=== PATIENT | male | born 1980 | race Caucasian/White ===

== ENCOUNTER → 2016-10-21 | Outpatient (CLI) | payer SELFPAY | LOC: COL.RAD 11:22 | DX: M79.642 Pain in left hand (principal); R22.32 Localized swelling, mass and lump, left upper limb; S62.391A Other fracture of second metacarpal bone, left hand, initial encounter for closed fracture ==

== ENCOUNTER 2018-10-03 09:53 | Outpatient (RCR) | payer OTHER | END 2019-01-01 | LOC: WSPT | DX: Z02.71 Encounter for disability determination (principal); F41.8 Other specified anxiety disorders ==

== ENCOUNTER 2021-06-04 15:44 | Emergency (ER) | payer SELFPAY ==
[~2021-06-04] VITALS: Ht 170.2 cm; Wt 72.7 kg
[2021-06-04 15:47] VITALS: TEMP 98.4
[2021-06-04 17:12] LABS: BASO % 0.2 % (0.0-2.0); EOS % 0.2 % (0.0-4.0); GRAN # 4.7 K/mm3 (1.4-6.5); GRAN % 72.2 % (42.2-75.2); HEMATOCRIT 45.5 % (42.0-52.0); HEMOGLOBIN 16.7 g/dl (13.5-18.0); LYMPH # 1.3 K/mm3 (1.2-3.4); LYMPH % 20.2 % (20.0-51.0); MEAN CELL VOLUME 87 fl (80.0-100.0); MEAN CORPUSCULAR HEMOGLOBIN 32 pg (27-31); MEAN CORPUSCULAR HGB CONC 37 g/dl (33.0-37.0); MEAN PLATELET VOLUME 11.1 fl (7.4-10.4); MONO # 0.4 K/mm3 (0.1-0.6); MONO % 6.7 % (1.7-9.3); PLATELET COUNT 107 K/mm3 (130-400); RED BLOOD COUNT 5.23 M/mm3 (4.20-5.60); REDCELL DISTRIBUTION WIDTH-CV 11.6 % (11.5-14.5)
[2021-06-04 17:30] LABS: ALBUMIN 3.6 gm/dL (3.5-5.0); BILIRUBIN,TOTAL 1.6 mg/dL (0.2-1.2); CALCIUM 9.2 mg/dL (8.4-10.2); CREATININE, serum 1.31 mg/dL (0.72-1.25); POTASSIUM 4.6 mmol/L (3.5-4.5); TOTAL PROTEIN 8.4 gm/dL (6.2-8.1)
[2021-06-04] MEDS ORDERED: INDERAL 20MG20 MG (17:39)
[2021-06-04] MEDS ORDERED: GLUCOPHAGE850 MG/TAB PO (18:45)
[2021-06-04 19:24] VITALS: BP 109/71; PULSE 103
== END 2021-06-04 19:24 | disposition home or self-care (01) ==
LOC: COL.ER 15:44
PROVIDERS: Family Medicine
DX: U07.1 COVID-19 (principal); E11.65 Type 2 diabetes mellitus with hyperglycemia
CPT/HCPCS: J1815; J2060; J7030; J7120

== ENCOUNTER 2021-06-06 08:36 | Inpatient (IN) | payer SELFPAY ==
[~2021-06-06] VITALS: Ht 170.2 cm; Wt 71.7 kg
[~2021-06-06 08:36] MED LIST: GLUCOPHAGE850 MG/TAB PO; INDERAL 20MG20 MG
[2021-06-06 08:59] LABS: BASO % 0.5 % (0.0-2.0); EOS % 0.2 % (0.0-4.0); GRAN # 3.2 K/mm3 (1.4-6.5); GRAN % 78.3 % (42.2-75.2); HEMATOCRIT 45.3 % (42.0-52.0); HEMOGLOBIN 16.3 g/dl (13.5-18.0); LYMPH # 0.6 K/mm3 (1.2-3.4); LYMPH % 13.9 % (20.0-51.0); MEAN CELL VOLUME 88 fl (80.0-100.0); MEAN CORPUSCULAR HEMOGLOBIN 32 pg (27-31); MEAN CORPUSCULAR HGB CONC 36 g/dl (33.0-37.0); MEAN PLATELET VOLUME 10.7 fl (7.4-10.4); MONO # 0.3 K/mm3 (0.1-0.6); MONO % 6.4 % (1.7-9.3); PLATELET COUNT 112 K/mm3 (130-400); RED BLOOD COUNT 5.13 M/mm3 (4.20-5.60); REDCELL DISTRIBUTION WIDTH-CV 11.8 % (11.5-14.5)
[2021-06-06 09:08] LABS: ALBUMIN 3.3 gm/dL (3.5-5.0); BILIRUBIN,TOTAL 1.3 mg/dL (0.2-1.2); CALCIUM 9.1 mg/dL (8.4-10.2); CREATININE, serum 1.36 mg/dL (0.72-1.25); POTASSIUM 3.9 mmol/L (3.5-4.5); TOTAL PROTEIN 7.9 gm/dL (6.2-8.1)
--- NOTE | 2021-06-06 13:09 | NUR ---
PT STATES HE IS NOT INITIALLY FROM HERE, AND HE WAS ONLY HERE TO TAKE CARE OF HIS MOTHER WHO RECENTLY FROM [facility]. HE PLANS ON DISCHARGING, TAKING CARE OF HIS MOTHER'S THINGS AND THEN MOVING AWAY FROM [place]. HIS STEP-FATHER IS HIS ONLY SUPPORT IN [facility], HOWEVER DOES HAVE A BROTHER WHO LIVES IN [place]. HE IS NON-COMPLIANT WITH HIS MEDICATION FOR DMT2 BECAUSE HE DOES NOT LIKE NEEDLES, SO TESTING HIS WBG AND GIVING HIMSELF INSULIN IS NOT SOMETHING HE LIKES TO DO. HE HAS BEEN PRESCRIBED METFORMIN BUT DOES NOT TAKE IT BECAUSE HE DOES NOT LIKE HOW IT MAKES HIM FEEL. THE PATIENT IS CURRENTLY ON 6L O2 AND IS NOT LABOROUS IN HIS BREATHING. HE DENIES ANY PAIN AT THIS TIME. LUNG SOUNDS ARE CLEAR BUT DIMINISHED. NO OTHER CONCERNS AT THIS TIME.
[2021-06-06] MEDS ORDERED: CELEXA40 MG PO (13:15)
[2021-06-06 15:57] VITALS: BP 106/72; PULSE 92; TEMP 98.6
[2021-06-06 16:00] VITALS: BP 108/72; PULSE 92; TEMP 98.2
[2021-06-06 17:30] LABS: MUCOUS Present (NOT PRESENT); PH 5 (5-8); SQUAMOUS EPITHELIAL None Seen /hpf (0-10); URINE APPEARANCE Clear (CLEAR/HAZY); URINE BACTERIA None Seen /hpf (NONE SEEN); URINE BILIRUBIN Negative (NEGATIVE); URINE BLOOD Negative (NEGATIVE); URINE COLOR Yellow (YELLOW); URINE GLUCOSE 3+ (NEGATIVE); URINE KETONE 2+ (NEGATIVE); URINE LEUKOCYTE ESTERASE Negative (NEGATIVE); URINE NITRATE Negative (NEGATIVE); URINE PROTEIN(semi-quant) Negative (NEGATIVE); URINE RBC None Seen /hpf (0-2); URINE UROBILINOGEN Negative (NEGATIVE); URINE WBC 0-2 /hpf (0-2)
[2021-06-06 17:35] LABS: COLLECTION METHOD CLEAN CATCH
--- NOTE | 2021-06-06 18:23 | NUR ---
PT HAD UNEVENTFUL AFTERNOON. THE PATIENT DENIES ANY PAIN. IS FEARFUL OF NEEDLES, HOWEVER TOOK INSULIN WITHOUT A PROBLEM AND TOLERATED WELL. THE PATIENT HAS REMAINED ON 6L O2.
[2021-06-06 20:07] VITALS: BP 122/75; PULSE 94; TEMP 98.2
[2021-06-06 23:45] VITALS: BP 115/74; PULSE 87; TEMP 97.8
[2021-06-07] VITALS (7 sets, daily range): BP systolic 108–117; BP diastolic 69–79; PULSE 68–93; TEMP 97.4–98.6
[2021-06-07 06:24] LABS: MEAN CELL VOLUME 88 fl (80.0-100.0); MEAN CORPUSCULAR HGB CONC 36 g/dl (33.0-37.0); MEAN PLATELET VOLUME 10.7 fl (7.4-10.4); PLATELET COUNT 129 K/mm3 (130-400); RED BLOOD COUNT 4.14 M/mm3 (4.20-5.60); REDCELL DISTRIBUTION WIDTH-CV 11.7 % (11.5-14.5)
[2021-06-07 06:36] LABS: CALCIUM 8.4 mg/dL (8.4-10.2); CREATININE, serum 0.87 mg/dL (0.72-1.25); POTASSIUM 3.7 mmol/L (3.5-4.5)
[2021-06-07 07:10] LABS: HEMATOCRIT 36.5 % (42.0-52.0); MEAN CORPUSCULAR HEMOGLOBIN 31 pg (27-31)
[2021-06-07 07:32] LABS: BAND 1 % (0-10); LYMPHOCYTE 18 % (20.0-51.0)
[2021-06-07 07:33] LABS: NEUTROPHILS 70 % (42.0-75.2); PLATELET ESTIMATE DECREASED (NORMAL)
--- NOTE | 2021-06-07 09:16 | NUR ---
PT ASSESSED, NO COMPLAINTS OF PAIN OR DYSPNEA. NO SIGNS OR SYMPTOMS OF DISTRESS. DOES APPEAR TO HYPERVENTLATE WHEN ADMINSTERING INJECTIONS. NO OTHER CONCERNS AT THIS TIME. CALL LIGHT WITHIN REACH
--- NOTE | 2021-06-07 14:40 | NUR ---
Due to patient being covid +, phone call made to the patient's room. Patient reports that he is fully independent with his activities of daily living. She reports that he does not utilize any DME to assist with mobility. Patient reports to no oxygen needs at home, however he is currently on 5L in room. Patient reports that he does not currently have a PCP and does not plan on getting one because "i'm moving soon". Utilizes [facility] for medications. Patient does not have a DP- etablished and does not wish to create one at this time. Both of his parents are not living he has never been and has no children. He does have one brother named Giorgio ([phone]) who is 20 and would be his NOK. Discharge plan: Home, may need oxygen set up
[2021-06-08 03:38] VITALS: BP 118/74; BP 118/774; PULSE 74; TEMP 97.9
[2021-06-08 07:20] LABS: MEAN CELL VOLUME 88 fl (80.0-100.0); MEAN CORPUSCULAR HEMOGLOBIN 31 pg (27-31); MEAN CORPUSCULAR HGB CONC 36 g/dl (33.0-37.0); MEAN PLATELET VOLUME 10.7 fl (7.4-10.4); PLATELET COUNT 139 K/mm3 (130-400); RED BLOOD COUNT 4.14 M/mm3 (4.20-5.60); REDCELL DISTRIBUTION WIDTH-CV 11.8 % (11.5-14.5)
[2021-06-08 07:21] LABS: HEMATOCRIT 36.5 % (42.0-52.0)
[2021-06-08 07:25] LABS: C-REACTIVE PROTEIN 4.03 mg/dL (0.00-0.50); CALCIUM 8.4 mg/dL (8.4-10.2); CREATININE, serum 0.76 mg/dL (0.72-1.25); POTASSIUM 3.2 mmol/L (3.5-4.5)
[2021-06-08 07:40] LABS: ALBUMIN 2.6 gm/dL (3.5-5.0); BILIRUBIN,DIRECT 0.3 mg/dL (0.0-0.5); BILIRUBIN,TOTAL 0.5 mg/dL (0.2-1.2)
--- NOTE | 2021-06-08 08:00 | NUR ---
Patient laying in bed in the dark. A&Ox4. VSS, airvo, no reported SOB. IV CDI, fluids infusing. Denies pain and discomfort. Nurse encouraging the patient to move while in bed, the patient states that he gets SOB and nauseous when he moves. Droplet/contact precautions in place. No further needs expressed. Call light within reach
[2021-06-08 08:06] LABS: BAND 11 % (0-10); BASOPHIL 1 % (0-2); LYMPHOCYTE 6 % (20.0-51.0); NEUTROPHILS 75 % (42.0-75.2); NUCLEATED RED BLOOD CELL 1 (0-6)
[2021-06-08 08:07] LABS: PLATELET ESTIMATE NORMAL (NORMAL)
[2021-06-08 08:09] VITALS: BP 109/62; PULSE 76; TEMP 98.1
[2021-06-08 11:38] VITALS: BP 97/63; PULSE 73; TEMP 97.9
[2021-06-08 16:36] VITALS: BP 108/65; PULSE 71; TEMP 98.3
--- NOTE | 2021-06-08 18:07 | NUR ---
Patient sitting up in bed eating dinner, A&Ox3. VSS 5L HF, no reported SOB. IV CDI. Patient did not want to work with PT and sit on the edge of the bed. Nursing staff encouraging patient to move in the bed and to ambulate. Patient verbalized an understanding, but still staying in bed. Denies pain and discomfort. No further needs expressed. Call light within reach
[2021-06-08 19:39] VITALS: BP 111/65; PULSE 79; TEMP 98.7
--- NOTE | 2021-06-08 20:49 | NUR ---
Patient assesseda round 1950. Alert and oriented x 4, and able to make needs known. Denies pain and discomfort. Peripheral INT to left AC. Reports SOB and dyspnea with exertion. On oxygen at 5 L/min via NC. LS CTA in upper lobes, diminished in lower. HRR. Telemetry in place. Voices no questions, needs, or concerns at this time. In bed with call light within reach.
[2021-06-08 23:35] VITALS: BP 110/59; PULSE 85; TEMP 98.3
[2021-06-09 04:04] VITALS: BP 113/70; PULSE 75; TEMP 97.3
[2021-06-09 04:43] LABS: ARTERIAL BLD GAS O2 SATURATION 91.8 % (92-100); ARTERIAL BLOOD GAS BASE EXCESS -2.2 (-2-2); ARTERIAL BLOOD GAS HCO3 19.2 meq/L (22-26); ARTERIAL BLOOD GAS PCO2 25.2 mmHg (35-45)
--- NOTE | 2021-06-09 05:28 | NUR ---
Patient's SPO2 around 0400 was 82% on oxygen at 5 L/min via NC. Patient compaining of shortness of breath at that time. Increased oxygen at 15 L/min via NC. SPO2 89-91%. Updated RT, and called [facility] and updated. New orders received and udpated RT with new orders. Patient given PRN Ativan, as patient anxious with high respiratory rate at that time. ABG drawn by RT. Patient very anxious/afraid of needles. Needed lots of encouragement and reminders to take slow deep breaths. SPO2 currently at 94% on oxygen at 15 L/min. Voices no further questions, needs, or concerns at this time. In bed with call light within reach.
[2021-06-09 06:21] LABS: BASO % 0.1 % (0.0-2.0); GRAN # 5.2 K/mm3 (1.4-6.5); GRAN % 74.4 % (42.2-75.2); HEMATOCRIT 37.2 % (42.0-52.0); HEMOGLOBIN 13.3 g/dl (13.5-18.0); LYMPH # 1.3 K/mm3 (1.2-3.4); LYMPH % 19.3 % (20.0-51.0); MEAN CELL VOLUME 89 fl (80.0-100.0); MEAN CORPUSCULAR HEMOGLOBIN 32 pg (27-31); MEAN CORPUSCULAR HGB CONC 36 g/dl (33.0-37.0); MEAN PLATELET VOLUME 10.7 fl (7.4-10.4); MONO # 0.4 K/mm3 (0.1-0.6); MONO % 5.8 % (1.7-9.3); PLATELET COUNT 150 K/mm3 (130-400); RED BLOOD COUNT 4.19 M/mm3 (4.20-5.60); REDCELL DISTRIBUTION WIDTH-CV 11.9 % (11.5-14.5)
[2021-06-09 06:31] LABS: CALCIUM 8.1 mg/dL (8.4-10.2); CREATININE, serum 0.74 mg/dL (0.72-1.25); POTASSIUM 3.1 mmol/L (3.5-4.5)
[2021-06-09 08:09] VITALS: BP 106/61; PULSE 76; TEMP 97.9
--- NOTE | 2021-06-09 08:54 | NUR ---
Patient laying in bed upon entering the room. This RN opened the blinds to allow sunlight. Patient has a very flat affect, and appears depressed. Current circumstances at home were explained to this RN. This RN is encouraging the patient to work with PT/OT and to get up out of bed, possibly to the recliner. Patient did not talk to this RN much overall. Did wince w/ IV medications administration, IV works fine w/ no signs of infiltrations. Patient has a fear of needles.
[2021-06-09 11:44] VITALS: BP 93/58; PULSE 73; TEMP 97.7
[2021-06-09 15:11] VITALS: BP 97/52; PULSE 74; TEMP 98.5
--- NOTE | 2021-06-09 17:06 | NUR ---
Patient has done well today. Currently sitting in the recliner waiting for his dinner to arrive.
[2021-06-09 19:51] VITALS: BP 109/69; PULSE 72; TEMP 98.1
[2021-06-09 23:40] VITALS: BP 101/64; PULSE 69; TEMP 98.2
[2021-06-10 03:58] VITALS: BP 100/66; PULSE 69; TEMP 97.7
[2021-06-10 07:47] VITALS: BP 98/59; PULSE 61; TEMP 97.9
[2021-06-10 08:06] LABS: CALCIUM 8.2 mg/dL (8.4-10.2); CREATININE, serum 0.69 mg/dL (0.72-1.25)
[2021-06-10 08:12] LABS: POTASSIUM 2.9 mmol/L (3.5-4.5)
--- NOTE | 2021-06-10 08:51 | NUR ---
This RN entered the room to administer morning medications; Patient stated, "No shots". This RN asked the patient if he was sure and informed the patient of the risks, and patietn still refused IV medications, insulin, and heparin for VTE.
--- NOTE | 2021-06-10 11:05 | NUR ---
BINTA consulted Financial Counseling for the patient yesterday, 05/30. SW contacted the patient this morning to follow up. The patient states that he is doing alright. He still plans on returning home upon discharge. He remains on 6 liters of oxygen. SW to continue to monitor. *Discharge plan: home*
[2021-06-10 11:23] VITALS: BP 96/60; PULSE 71; TEMP 98.4
[2021-06-10 16:20] VITALS: BP 102/64; PULSE 63; TEMP 98.3
--- NOTE | 2021-06-10 18:30 | NUR ---
Patient remains depressed, concerns brought up to Dr. Nettles. Patient feels he will be in the hospital forever, and that he is not going to recover. This RN explained that he is only on 3L of O2 and appears to be doing well. Encouraged to continue his treatments and not refuse IV medications.
[2021-06-10 19:54] VITALS: BP 106/54; PULSE 84
--- NOTE | 2021-06-10 19:57 | NUR ---
Patient with 84% on O2 @3L per NC, increased O2 to 10L per Hi Lucho - call placed to RT, 91% on O2@10L per HIFLO Cannula, patient tolerating at this time.
[2021-06-11 00:33] VITALS: BP 99/66; PULSE 62; TEMP 97.4
[2021-06-11 05:20] VITALS: BP 100/64; PULSE 54; TEMP 97.5
--- NOTE | 2021-06-11 05:32 | NUR ---
Patient resting quietly, no c/o at this time, call catia w/i reach, no s/s of hypo/hyper glycemia, telemetry in use running SR 60s, VS stable, currently on 6L per hiflo NC, SHOB noted on exertion, cough noted. Will continue to monitor.
[2021-06-11 06:54] LABS: BASO % 0.2 % (0.0-2.0); EOS % 0.4 % (0.0-4.0); GRAN # 4.2 K/mm3 (1.4-6.5); HEMOGLOBIN 12.8 g/dl (13.5-18.0); LYMPH % 17.9 % (20.0-51.0); MEAN CELL VOLUME 89 fl (80.0-100.0); MEAN CORPUSCULAR HEMOGLOBIN 31 pg (27-31); MEAN CORPUSCULAR HGB CONC 35 g/dl (33.0-37.0); MEAN PLATELET VOLUME 10.1 fl (7.4-10.4); MONO # 0.4 K/mm3 (0.1-0.6); MONO % 7.4 % (1.7-9.3); PLATELET COUNT 166 K/mm3 (130-400); RED BLOOD COUNT 4.11 M/mm3 (4.20-5.60); REDCELL DISTRIBUTION WIDTH-CV 11.8 % (11.5-14.5)
[2021-06-11 07:00] LABS: HEMATOCRIT 36.6 % (42.0-52.0)
[2021-06-11 07:35] LABS: CALCIUM 8.3 mg/dL (8.4-10.2); CREATININE, serum 0.71 mg/dL (0.72-1.25); POTASSIUM 3.5 mmol/L (3.5-4.5)
[2021-06-11 08:46] VITALS: BP 100/67; PULSE 55; TEMP 98.4
--- NOTE | 2021-06-11 09:46 | NUR ---
PT ASSESSED. NO COMPLAINTS OF PAIN OR DYSPNEA. NO SIGNS OR SYMPTOMS OF DSITRESS. CALL LIGHT WITHIN REACH.
[2021-06-11 11:21] VITALS: BP 103/62; PULSE 65; TEMP 99.2
[2021-06-11 17:18] VITALS: BP 104/70; PULSE 55; TEMP 98.1
[2021-06-11 21:13] VITALS: BP 102/58; PULSE 57; TEMP 98.1
[2021-06-12 01:23] VITALS: BP 99/69; PULSE 54; TEMP 97.7
[2021-06-12 05:22] VITALS: BP 99/62; PULSE 87; TEMP 98.3
[2021-06-12 06:15] LABS: BASO % 0.2 % (0.0-2.0); EOS # 0.1 K/mm3 (0.0-0.7); EOS % 0.8 % (0.0-4.0); GRAN # 4.8 K/mm3 (1.4-6.5); HEMATOCRIT 38.3 % (42.0-52.0); HEMOGLOBIN 13.4 g/dl (13.5-18.0); LYMPH # 1.1 K/mm3 (1.2-3.4); LYMPH % 17.2 % (20.0-51.0); MEAN CELL VOLUME 91 fl (80.0-100.0); MEAN CORPUSCULAR HEMOGLOBIN 32 pg (27-31); MEAN CORPUSCULAR HGB CONC 35 g/dl (33.0-37.0); MEAN PLATELET VOLUME 10.5 fl (7.4-10.4); MONO # 0.5 K/mm3 (0.1-0.6); MONO % 7.4 % (1.7-9.3); PLATELET COUNT 181 K/mm3 (130-400); RED BLOOD COUNT 4.23 M/mm3 (4.20-5.60)
[2021-06-12 06:33] LABS: CALCIUM 8.5 mg/dL (8.4-10.2); CREATININE, serum 0.81 mg/dL (0.72-1.25); POTASSIUM 3.5 mmol/L (3.5-4.5)
[2021-06-12 08:43] VITALS: BP 117/61; PULSE 72; TEMP 98.2
[2021-06-12] MEDS ORDERED: DECADRON6 MG PO (10:04)
--- NOTE | 2021-06-12 11:09 | NUR ---
PT DOES NOT REQUIRE OXYGEN WITH AMBULATION. SP02 >92% WITH MOVEMENT.
[2021-06-12 11:24] VITALS: BP 104/55; PULSE 59; TEMP 97.9
--- NOTE | 2021-06-12 14:57 | NUR ---
PT DISCHARGE TEACHING COMPLETE. IV REMOVED. NO QUESTIONS OR CONCERNS. PT ESCORTED OUT TO CAR.
== END 2021-06-12 14:57 | disposition home or self-care (01) | DRG 177 ==
LOC: COL.ER 08:36 → MEDICAL 09:23
PROVIDERS: Family Medicine; Internal Medicine; Physician Assistant; Student in an Organized Health Care Education/Training Program; ADMIT Student in an Organized Health Care Education/Training Program
PROC: XW033E5 Introduction of Remdesivir Anti-infective into Peripheral Vein, Percutaneous Approach, New Technology Group 5 (ICD-10-PCS; principal; 2021-06-07)
PROC: 5A0945A Assistance with Respiratory Ventilation, 24-96 Consecutive Hours, High Flow/Velocity Cannula (ICD-10-PCS; 2021-06-08)
DX: U07.1 COVID-19 (principal); J96.01 Acute respiratory failure with hypoxia; N17.9 Acute kidney failure, unspecified; E86.0 Dehydration; E11.9 Type 2 diabetes mellitus without complications; F41.9 Anxiety disorder, unspecified; F32.A Depression, unspecified; R94.5 Abnormal results of liver function studies; Z79.4 Long term (current) use of insulin
CPT/HCPCS: 99222-AI; 99232-AI; 99233-AI; 99239; J0248; J0696; J1100; J1644; J1815; J2405; J7030; J7050; J8540; Q9967

== ENCOUNTER 2022-01-18 15:28 | Emergency (ER) | payer SELFPAY ==
[~2022-01-18] VITALS: Ht 165.1 cm; Wt 70.9 kg
[~2022-01-18 15:28] MED LIST changes: +CELEXA40 MG PO; +DECADRON6 MG PO
[2022-01-18 16:07] VITALS: TEMP 98.1
[2022-01-18 18:49] LABS: BASO # 0.1 K/mm3 (0.0-0.2); BASO % 0.6 % (0.0-2.0); EOS # 0.2 K/mm3 (0.0-0.7); EOS % 2.3 % (0.0-4.0); GRAN # 5.5 K/mm3 (1.4-6.5); GRAN % 64.2 % (42.2-75.2); HEMATOCRIT 47.7 % (42.0-52.0); HEMOGLOBIN 17.9 g/dl (13.5-18.0); LYMPH # 2.2 K/mm3 (1.2-3.4); LYMPH % 25.5 % (20.0-51.0); MEAN CELL VOLUME 86 fl (80.0-100.0); MEAN CORPUSCULAR HEMOGLOBIN 32 pg (27-31); MEAN CORPUSCULAR HGB CONC 38 g/dl (33.0-37.0); MEAN PLATELET VOLUME 10.2 fl (7.4-10.4); MONO # 0.6 K/mm3 (0.1-0.6); MONO % 6.8 % (1.7-9.3); PLATELET COUNT 180 K/mm3 (130-400); RED BLOOD COUNT 5.54 M/mm3 (4.20-5.60)
[2022-01-18 19:00] LABS: COLLECTION METHOD CLEAN CATCH
[2022-01-18 19:11] LABS: BILIRUBIN,TOTAL 1.1 mg/dL (0.2-1.2); CALCIUM 9.8 mg/dL (8.4-10.2); CREATININE, serum 1.49 mg/dL (0.72-1.25); POTASSIUM 3.6 mmol/L (3.5-4.5); TOTAL PROTEIN 7.5 gm/dL (6.2-8.1)
[2022-01-18 19:29] LABS: SQUAMOUS EPITHELIAL None Seen /hpf (0-10); URINE BACTERIA None Seen /hpf (NONE SEEN); URINE RBC 0-2 /hpf (0-2)
[2022-01-18 19:30] LABS: URINE APPEARANCE Clear (CLEAR/HAZY); URINE BLOOD Negative (NEGATIVE); URINE COLOR Colorless (YELLOW); URINE GLUCOSE 2+ (NEGATIVE); URINE KETONE Negative (NEGATIVE); URINE NITRATE Negative (NEGATIVE); URINE PROTEIN(semi-quant) Negative (NEGATIVE); URINE UROBILINOGEN 0.2 E.U/dL (0.2-1.0)
[2022-01-18 20:05] VITALS: BP 119/85; PULSE 113
== END 2022-01-18 20:05 | disposition left against medical advice (07) ==
LOC: COL.ER 15:28
PROVIDERS: Nurse Practitioner Primary Care
DX: E11.65 Type 2 diabetes mellitus with hyperglycemia (principal); N17.9 Acute kidney failure, unspecified; Z28.310 Unvaccinated for COVID-19
CPT/HCPCS: J1885; J2405; J7030; Q9967

== ENCOUNTER 2022-02-05 12:16 | Inpatient (IN) | payer SELFPAY ==
[2022-02-05] VITALS (353 sets, daily range): BP systolic 117–118; BP diastolic 80–85; PULSE 85–95; TEMP 98.8; O2SAT 93–100
[~2022-02-05] VITALS: Ht 167.6 cm; Wt 159.7 kg
[2022-02-05 14:23] LABS: BASO # 0.1 K/mm3 (0.0-0.2); BASO % 0.5 % (0.0-2.0); EOS # 0.3 K/mm3 (0.0-0.7); EOS % 3.5 % (0.0-4.0); GRAN # 6.1 K/mm3 (1.4-6.5); GRAN % 65.7 % (42.2-75.2); HEMATOCRIT 45.8 % (42.0-52.0); HEMOGLOBIN 16.8 g/dl (13.5-18.0); LYMPH # 2.2 K/mm3 (1.2-3.4); LYMPH % 23.7 % (20.0-51.0); MEAN CELL VOLUME 89 fl (80.0-100.0); MEAN CORPUSCULAR HEMOGLOBIN 33 pg (27-31); MEAN CORPUSCULAR HGB CONC 37 g/dl (33.0-37.0); MEAN PLATELET VOLUME 10.4 fl (7.4-10.4); MONO # 0.6 K/mm3 (0.1-0.6); MONO % 6.3 % (1.7-9.3); PLATELET COUNT 179 K/mm3 (130-400); RED BLOOD COUNT 5.17 M/mm3 (4.20-5.60); REDCELL DISTRIBUTION WIDTH-CV 12.1 % (11.5-14.5)
[2022-02-05 14:33] LABS: ACETONE,SERUM NEGATIVE
[2022-02-05 14:35] LABS: ALANINE AMINOTRANSFERASE 27 U/L (0-55); ALBUMIN 3.8 gm/dL (3.5-5.0); ALKALINE PHOSPHATASE 168 U/L (40-150); ANION GAP 14 mmol/L (7-16); AST,SGOT 25 U/L (5-34); BLOOD UREA NITROGEN 12 mg/dL (9-21); CALCIUM 9.7 mg/dL (8.4-10.2); CARBON DIOXIDE 20 mmol/L (22-29); CHLORIDE 96 mmol/L (98-107); CREATININE, serum 1.45 mg/dL (0.72-1.25); LIPASE 29 U/L (8-78); POTASSIUM 4.5 mmol/L (3.5-4.5); SODIUM 130 mmol/L (136-145); TOTAL PROTEIN 7.3 gm/dL (6.2-8.1)
[2022-02-05 14:48] LABS: GLUCOSE 773 mg/dL (70-99); TROPONIN-I < 0.010 ng/mL (0.00-0.033)
[2022-02-05 14:59] LABS: BILIRUBIN,TOTAL 0.9 mg/dL (0.2-1.2)
[2022-02-05] MEDS ORDERED: CELEXA10 MG PO (16:22)
[2022-02-05] MEDS ORDERED: INDERAL 10MG10 MG PO (16:23)
[2022-02-05 20:03] LABS: CALCIUM 8.5 mg/dL (8.4-10.2); CREATININE, serum 0.83 mg/dL (0.72-1.25); POTASSIUM 3.6 mmol/L (3.5-4.5)
--- NOTE | 2022-02-05 20:17 | NUR ---
BEDSIDE SHIFT REPORT RECEIVED FROM GEETA VINSON. PT CURRENTLY RESTING IN BED. C/O PAIN AND DISCOMFORT ADDRESSED WITH PRN MEDICATION (SEE MAR). ALL LINES RUNNING ACCORDING TO REPORT (SEE DRIP FLOWSHEET). VSS. NO ACUTE CHANGES NOTED AT THIS TIME.
[2022-02-05 21:02] LABS: COLLECTION METHOD CLEAN CATCH
[2022-02-05 21:10] LABS: URINE APPEARANCE Clear (CLEAR/HAZY); URINE COLOR Yellow (YELLOW)
[2022-02-05 21:11] LABS: URINE BLOOD Negative (NEGATIVE); URINE GLUCOSE 3+ (NEGATIVE); URINE KETONE Negative (NEGATIVE); URINE NITRATE Negative (NEGATIVE); URINE PROTEIN(semi-quant) Negative (NEGATIVE); URINE UROBILINOGEN 0.2 E.U/dL (0.2-1.0)
[2022-02-05 21:14] LABS: SQUAMOUS EPITHELIAL None Seen /hpf (0-10); URINE BACTERIA None Seen /hpf (NONE SEEN); URINE RBC None Seen /hpf (0-2); URINE WBC None Seen /hpf (0-2)
[2022-02-05 23:21] LABS: CALCIUM 7.9 mg/dL (8.4-10.2); CREATININE, serum 0.71 mg/dL (0.72-1.25); POTASSIUM 3.3 mmol/L (3.5-4.5)
[2022-02-06] VITALS (759 sets, daily range): BP systolic 112–126; BP diastolic 63–82; PULSE 77–100; TEMP 98.2–98.8; O2SAT 78–100
[2022-02-06 01:47] LABS: CALCIUM 7.6 mg/dL (8.4-10.2); CREATININE, serum 0.64 mg/dL (0.72-1.25); POTASSIUM 3.1 mmol/L (3.5-4.5)
[2022-02-06 03:50] LABS: CALCIUM 7.7 mg/dL (8.4-10.2); CREATININE, serum 0.67 mg/dL (0.72-1.25); POTASSIUM 3.5 mmol/L (3.5-4.5)
[2022-02-06 06:12] LABS: CREATININE, serum 0.62 mg/dL (0.72-1.25); POTASSIUM 3.4 mmol/L (3.5-4.5)
[2022-02-06 07:46] LABS: CREATININE, serum 0.63 mg/dL (0.72-1.25); POTASSIUM 3.7 mmol/L (3.5-4.5)
--- NOTE | 2022-02-06 09:43 | NUR ---
supervisor hand workers met with patient to shad [employer]. Patient reports that he is currently here visiting his brother but spends his time equally between [place] where is father lives and [place]. He does not have a stable housing situation, stating that he stays in hotels.Patient is fulling independent with his ADL's and does not have any DME or oxygen needs. Patient has down that he goes to the [facility], but admits that he hasn't been there in years. He gets his medications through [facility] and reports to no cost difficulty. Patient does not have a DPOA-HC established. He is not and has no children. His established legal NOK is his father in [place].
[2022-02-06 09:49] LABS: CALCIUM 8.3 mg/dL (8.4-10.2); CREATININE, serum 0.65 mg/dL (0.72-1.25)
--- NOTE | 2022-02-06 12:58 | NUR ---
Election Supervisor rounds: Patient declined internal recruiter visit. Patient did express a desire to see the [employer] game on TV today and was grateful to have that game to look forward to.
--- NOTE | 2022-02-06 14:24 | NUR ---
PT REPORT GIVEN TO GEETA NAILS. PT MOVED TO MEDICAL ROOM 352 VIA WHEELCHAIR WITHOUT INCIDENT. CARE RELINQUISHED AT THIS TIME.
--- NOTE | 2022-02-06 14:30 | NUR ---
Patient to room 352 by wheelchair from the ICU. A&Ox4. VSS. IV CDI. Independent in the room. Denies pain and discomfort. Nurse oriented the patient to location, room and call light. No further needs expressed. Call light within reach
--- NOTE | 2022-02-06 17:53 | NUR ---
Patient laying in bed watching TV. A&Ox4. VSS. IV CDI. Denies pain and discomfort. Call light within reach
--- NOTE | 2022-02-06 20:30 | NUR ---
PATIENT IS RESTING IN BED.PATIENT REPORTS PAIN.MEDICATIONS ADMINISTERED PER JUL.PATIENT IS INDEPENDENT IN THE ROOM.PATIENT REQUESTS FOR CRACKERS SAME GIVEN.NO OTHER NEEDS AT THIS TIME.
[2022-02-07 00:41] VITALS: BP 126/74; PULSE 84; TEMP 98
[2022-02-07 04:21] VITALS: BP 111/75; PULSE 86; TEMP 97.8
--- NOTE | 2022-02-07 06:03 | NUR ---
AM BG 188 INSULIN ADMINISTERED.PATIENT OFFERED ERNESTO BLANKENSHIP.[AIN MEDICINE GIVEN PER MAR.PATIENT IS INDEPENDENT IN THER ROOM.NO OTHER NEEDS AT THIS TIME.
[2022-02-07 06:30] LABS: BASO % 0.5 % (0.0-2.0); EOS # 0.3 K/mm3 (0.0-0.7); EOS % 4.2 % (0.0-4.0); GRAN # 3.5 K/mm3 (1.4-6.5); GRAN % 57.1 % (42.2-75.2); HEMATOCRIT 37.3 % (42.0-52.0); LYMPH # 1.9 K/mm3 (1.2-3.4); MEAN CELL VOLUME 86 fl (80.0-100.0); MEAN CORPUSCULAR HEMOGLOBIN 32 pg (27-31); MEAN CORPUSCULAR HGB CONC 37 g/dl (33.0-37.0); MEAN PLATELET VOLUME 10.3 fl (7.4-10.4); MONO # 0.4 K/mm3 (0.1-0.6); MONO % 6.9 % (1.7-9.3); PLATELET COUNT 120 K/mm3 (130-400); RED BLOOD COUNT 4.32 M/mm3 (4.20-5.60)
[2022-02-07 06:40] LABS: HEMOGLOBIN 13.9 g/dl (13.5-18.0)
[2022-02-07 06:43] LABS: CALCIUM 8.5 mg/dL (8.4-10.2); CREATININE, serum 0.67 mg/dL (0.72-1.25); POTASSIUM 3.3 mmol/L (3.5-4.5)
--- NOTE | 2022-02-07 07:22 | NUR ---
Patient laying in bed, A&Ox4. VSS. IV CDI. Reports pain in RT foot, request pain medication when available. Call light within reach
[2022-02-07 08:04] VITALS: BP 112/75; PULSE 84; TEMP 97.8
[2022-02-07] MEDS ORDERED: LEVEMIR FLEX100 U/ML SQ (08:35)
[2022-02-07] MEDS ORDERED: NOVOLOG FLEX100 U/ML SQ (08:37)
[2022-02-07] MEDS ORDERED: FREESTYLE PREC1 EAC5 MC (09:02)
[2022-02-07] MEDS ORDERED: LANCETS MC (09:03)
[2022-02-07] MEDS ORDERED: GLUCOSE TEST ST1 DEV MC (09:07)
[2022-02-07] MEDS ORDERED: GLUCOPHAGE500 MG/TAB PO (09:08)
[2022-02-07 11:48] VITALS: BP 126/80; PULSE 96; TEMP 97.7
--- NOTE | 2022-02-07 12:13 | NUR ---
Discharge paperwork reviewed with the patient. Patient verbalized an understanding to follow doctors orders. IV removed tip intact. Patient refused to have noon insulin given. Patient ambulated to vehicle independently. No further needs expressed.
== END 2022-02-07 12:13 | disposition home or self-care (01) | DRG 638 ==
LOC: COL.ER 12:16 → ICU 15:15 → MEDICAL 02-06 16:12
PROVIDERS: Emergency Medicine; Student in an Organized Health Care Education/Training Program; ADMIT Internal Medicine
DX: E11.00 Type 2 diabetes mellitus with hyperosmolarity without nonketotic hyperglycemic-hyperosmolar coma (NKHHC) (principal); E87.2 Acidosis; N17.9 Acute kidney failure, unspecified; E87.1 Hypo-osmolality and hyponatremia; F41.9 Anxiety disorder, unspecified; F32.A Depression, unspecified; Z86.16 Personal history of COVID-19; Z91.19 Patient's noncompliance with other medical treatment and regimen
CPT/HCPCS: J1815; J3480; J7030; J7120